=== PATIENT | female | born 1955 | race Caucasian/White ===

== ENCOUNTER 2016-07-31 09:29 | Observation (INO) | payer BC ==
[2016-07-31 10:43] LABS: Hematocrit 40 % (35-47); Hemoglobin 13.3 g/dl (12.0-16.0); Mean Corpuscular HGB Conc 34 g/dl (31-36); Mean Corpuscular Hemoglobin 33 pg (27-31); Mean Corpuscular Volume 97 fL (80-97); Mean Platelet Volume 9 um3 (7.4-10.4); Red Blood Count 4.09 10^6/ul (4.0-5.4); Red Cell Distribution Width 12 % (10.5-15); White Blood Count 5.8 10^3/ul (3.5-10.8)
--- NOTE | 2016-07-31 10:47 | RAD ---
INDICATION: Chest pain COMPARISON: Chest x-ray May 30, 2010 TECHNIQUE: An AP portable view obtained at 1015 hours is submitted. FINDINGS: Bones/Soft Tissues: There are no acute bony findings. Cardiomediastinal: The cardiomediastinal silhouette is normal. Lungs: There are no infiltrates. Pleura: There are no pleural effusions. Other: None IMPRESSION: NORMAL CHEST
[2016-07-31 10:55] LABS: Albumin 4.2 g/dL (3.2-5.2); BUN/Creatinine Ratio 11.1 (8-20); Calcium 9.4 mg/dL (8.6-10.3); EGFR African American 106.6 (>60); EGFR Non-African American 82.9 (>60); Globulin 2.9 g/dL (2-4); Magnesium 1.9 mg/dL (1.9-2.7); Potassium 3.6 mmol/L (3.5-5.0); Total Bilirubin 0.5 mg/dL (0.2-1.0); Total Protein 7.1 g/dL (6.4-8.9)
[2016-07-31 11:16] LABS: T4 4.73 g/dL (6.09-12.23)
[2016-07-31 11:17] LABS: TSH (Thyroid Stimulating Horm) 1.2 mcIU/mL (0.34-5.60)
[2016-07-31] MEDS ORDERED: Acetaminophen TAB* 325 MG PO PRN (11:39)
[2016-07-31] MEDS ORDERED: Ondansetron INJ* 2 MG/ML VIAL IV PRN (11:39)
--- NOTE | 2016-07-31 11:46 | ED ---
Karel Mabry Janilya, scribed for Jos Carlson MD on 07/31/16 at 0959 . HPI Chest Pain - HPI Summary HPI Summary: A 60 y/o female [facility] presenting w/ a gradual onset of waxing and waning chest heaviness for the past 2 days. It is worse when she first awakes. She took Tums yesterday and today because she's had "gas pain" before. However, it provided no change in pain. At this time, pain is not reproducible with palpations. Severity rated 4/10. Pt denies SOB, nausea, diaphoresis, pedal edema. PMHx palpitations 4-5 years ago, HTN, asthma. FHx cardiac diseases. PSHx appendectomy. SHx no tobacco use, occasional EtOH use. - History of Current Complaint Chief Complaint: EDChestPainROMI Time Seen by Provider: 07/31/16 09:42 Hx Obtained From: Patient Onset/Duration: Started Days Ago, Atraumatic, Still Present Timing: Constant Initial Severity: Moderate Current Severity: Moderate Pain Intensity: 4 Pain Scale Used: 0-10 Numeric Chest Pain Location: Diffuse Chest Pain Radiates: No Character: Heaviness Aggravating Factor(s): Nothing Alleviating Factor(s): Nothing Associated Signs and Symptoms: Positive: Chest Pain. Negative: Shortness of Breath, Diaphoresis, Nausea, Edema - Allergy/Home Medications Allergies/Adverse Reactions: Allergies Allergy/AdvReac Type Severity Reaction Status Date / Time Aspirin Allergy Anaphylatic Verified 02/14/14 13:54 Shock Ibuprofen Allergy Anaphylatic Verified 02/14/14 13:54 Shock PMH/Surg Hx/FS Hx/Imm Hx Previously Healthy: Yes Cardiovascular History: Reports: Hx Hypertension Respiratory History: Reports: Hx Asthma Musculoskeletal History: Denies: Hx Rheumatoid Arthritis, Hx Osteoporosis Infectious Disease History: Denies: Traveled Outside the [place] in Last 30 Days - Family History Known Family History: Positive: Cardiac Disease - Social History Alcohol Use: Daily Alcohol Amount: 2 glasses a day Substance Use Type: Reports: None Smoking Status (MU): Former Smoker Type: Cigarettes Length of Time of Smoking/Using Tobacco: 15 years Have You Smoked in the Last Year: No Review of Systems Positive: Chest Pain Negative: Shortness Of Breath Negative: Nausea Negative: Edema Neurological: Negative - pt denies diaphoresis All Other Systems Reviewed And Are Negative: Yes Physical Exam - Summary Physical Exam Summary: VITAL SIGNS: Reviewed. GENERAL: Patient is a well developed and nourished female who is lying comfortable in the stretcher. Patient is not in any acute respiratory distress. HEAD AND FACE: No signs of trauma. No ecchymosis, hematomas or skull depressions. No sinus tenderness. EYES: PERRLA, EOMI x 2, No injected conjunctiva, no nystagmus. EARS: Hearing grossly intact. Ear canals and tympanic membranes are within normal limits. MOUTH: Oropharynx within normal limits. NECK: Supple, trachea is midline, no adenopathy, no JVD, no carotid bruit, no c- spine tenderness, neck with full ROM. CHEST: Symmetric, no tenderness at palpation LUNGS: Clear to auscultation bilaterally. No wheezing or crackles. CVS: Regular rate and rhythm, S1 and S2 present, no murmurs or gallops appreciated. ABDOMEN: Soft, non-tender. No signs of distention. No rebound no guarding, and no masses palpated. Bowel sounds are normal. EXTREMITIES: FROM in all major joints, no edema, no cyanosis or clubbing. NEURO: Alert and oriented x 3. No acute neurological deficits. Speech is normal and follows commands. SKIN: Dry and warm Triage Information Reviewed: Yes Vital Signs On Initial Exam: Initial Vitals Temp Pulse Resp BP Pulse Ox 96.9 F 84 16 151/71 99 07/31/16 09:31 07/31/16 09:31 07/31/16 09:31 07/31/16 09:31 07/31/16 09:31 Vital Signs Reviewed: Yes Diagnostics - Vital Signs Vital Signs Temp Pulse Resp BP Pulse Ox 07/31/16 09:31 96.9 F 84 16 151/71 99 - Laboratory Lab Results: Lab Results 07/31/16 07/31/16 07/31/16 Range/Units 10:12 10:12 10:12 WBC 5.8 (3.5-10.8) 10^3/ul RBC 4.09 (4.0-5.4) 10^6/ul Hgb 13.3 (12.0-16.0) g/dl Hct 40 (35-47) % MCV 97 (80-97) fL MCH 33 H (27-31) pg MCHC 34 (31-36) g/dl RDW 12 (10.5-15) % Plt Count 177 (150-450) 10^3/ul MPV 9 (7.4-10.4) um3 Neut % (Auto) 59.4 (38-83) % Lymph % (Auto) 29.0 (25-47) % [place] % (Auto) 6.8 (1-9) % Eos % (Auto) 4.5 (0-6) % Baso % (Auto) 0.3 (0-2) % Absolute Neuts (auto) 3.4 (1.5-7.7) 10^3/ul Absolute Lymphs (auto) 1.7 (1.0-4.8) 10^3/ul Absolute Monos (auto) 0.4 (0-0.8) 10^3/ul Absolute Eos (auto) 0.3 (0-0.6) 10^3/ul Absolute Basos (auto) 0 (0-0.2) 10^3/ul Absolute Nucleated RBC 0 10^3/ul Nucleated RBC % 0.1 INR (Anticoag Therapy) 0.85 L (0.89-1.11) APTT 27.3 (26.0-36.3) seconds Sodium 135 (133-145) mmol/L Potassium 3.6 (3.5-5.0) mmol/L Chloride 101 (101-111) mmol/L Carbon Dioxide 26 (22-32) mmol/L Anion Gap 8 (2-11) mmol/L BUN 8 (6-24) mg/dL Creatinine 0.72 (0.51-0.95) mg/dL Est GFR ( Amer) 106.6 (>60) Est GFR (Non-Af Amer) 82.9 (>60) BUN/Creatinine Ratio 11.1 (8-20) Glucose 112 H (70-100) mg/dL Lactic Acid (0.5-2.0) mmol/L Calcium 9.4 (8.6-10.3) mg/dL Magnesium 1.9 (1.9-2.7) mg/dL Total Bilirubin 0.50 (0.2-1.0) mg/dL AST 30 (13-39) U/L ALT 34 (7-52) U/L Alkaline Phosphatase 56 (34-104) U/L Total Creatine Kinase 72 (10-223) U/L CK-MB (CK-2) 2.5 (0.6-6.3) ng/mL Troponin I 0.00 (<0.04) ng/mL B-Natriuretic Peptide ( - 100) pg/mL Total Protein 7.1 (6.4-8.9) g/dL Albumin 4.2 (3.2-5.2) g/dL Globulin 2.9 (2-4) g/dL Albumin/Globulin Ratio 1.4 (1-3) TSH 1.20 (0.34-5.60) mcIU/mL Thyroxine (T4) 4.73 L (6.09-12.23) g/dL 07/31/16 07/31/16 Range/Units 10:12 10:12 WBC (3.5-10.8) 10^3/ul RBC (4.0-5.4) 10^6/ul Hgb (12.0-16.0) g/dl Hct (35-47) % MCV (80-97) fL MCH (27-31) pg MCHC (31-36) g/dl RDW (10.5-15) % Plt Count (150-450) 10^3/ul MPV (7.4-10.4) um3 Neut % (Auto) (38-83) % Lymph % (Auto) (25-47) % [place] % (Auto) (1-9) % Eos % (Auto) (0-6) % Baso % (Auto) (0-2) % Absolute Neuts (auto) (1.5-7.7) 10^3/ul Absolute Lymphs (auto) (1.0-4.8) 10^3/ul Absolute Monos (auto) (0-0.8) 10^3/ul Absolute Eos (auto) (0-0.6) 10^3/ul Absolute Basos (auto) (0-0.2) 10^3/ul Absolute Nucleated RBC 10^3/ul Nucleated RBC % INR (Anticoag Therapy) (0.89-1.11) APTT (26.0-36.3) seconds Sodium (133-145) mmol/L Potassium (3.5-5.0) mmol/L Chloride (101-111) mmol/L Carbon Dioxide (22-32) mmol/L Anion Gap (2-11) mmol/L BUN (6-24) mg/dL Creatinine (0.51-0.95) mg/dL Est GFR ( Amer) (>60) Est GFR (Non-Af Amer) (>60) BUN/Creatinine Ratio (8-20) Glucose (70-100) mg/dL Lactic Acid 3.0 H* (0.5-2.0) mmol/L Calcium (8.6-10.3) mg/dL Magnesium (1.9-2.7) mg/dL Total Bilirubin (0.2-1.0) mg/dL AST (13-39) U/L ALT (7-52) U/L Alkaline Phosphatase (34-104) U/L Total Creatine Kinase (10-223) U/L CK-MB (CK-2) (0.6-6.3) ng/mL Troponin I (<0.04) ng/mL B-Natriuretic Peptide 32 ( - 100) pg/mL Total Protein (6.4-8.9) g/dL Albumin (3.2-5.2) g/dL Globulin (2-4) g/dL Albumin/Globulin Ratio (1-3) TSH (0.34-5.60) mcIU/mL Thyroxine (T4) (6.09-12.23) g/dL Result Diagrams: 07/31/16 10:12 07/31/16 10:12 Lab Statement: Any lab studies that have been ordered have been reviewed, and results considered in the medical decision making process. - EKG 0935 Cardiac Rate: NL - 89 bpm EKG Rhythm: Sinus Rhythm Ectopy: None EKG Interpretation: ST depression in V4, V5, V6 Chest Pain Course/Dx - Course Assessment/Plan: A 60 y/o female came in to [facility] presenting w/ a gradual onset of waxing and waning chest heaviness for the past 2 days. It is worse when she first awakes. She took Tums yesterday and today because she's had "gas pain" before. However, it provided no change in pain. At this time, pain is not reproducible with palpations. Severity rated 4/10. Pt denies SOB, nausea, diaphoresis, pedal edema. Blood work is within normal limits except for glucose (112 H) and lactic acid (3.0 H). Troponin levels is 0.00. CXR shows no acute disease. EKG is sinus rhythm with ST depression in v4 v5 v6. plus her symptoms of Chest pressure I discussed physical exam findings with Dr. Gray who agreed to admit patient to her services. At this time, pt is hemodynamically stable and AxOx3. - Chest Pain Differential Diagnosis/HQI/PQRI: Acute [place], ACS, Angina, CHF, Chest Wall, GI Disease, Lower Respiratory Infection - Diagnoses Provider Diagnoses: Chest pain due to myocardial ischemia, Abnormal EKG Discharge - Discharge Plan Condition: Stable Disposition: ADMITTED TO [facility] Referrals: Emma Nayak MD [Primary Care Provider] - The documentation as recorded by the Karel weir Janilya accurately reflects the service I personally performed and the decisions made by , Jos Carlson MD.
[2016-07-31] MEDS ORDERED: Albuterol 2.5 MG/3 ML NEB.SOL* (0.083%) INH PRN (13:00)
[2016-07-31] MEDS: Heparin VIAL(*) 5000 UNITS/ML VIAL (FIVE THOUSAND) SUBCUT SCH ×2 (15:07→21:04)
[2016-07-31] MEDS: Metoprolol Tartrate TAB* 25 MG PO SCH ×2 (15:07→20:58)
[2016-07-31] MEDS: Clopidogrel TAB* 75 MG PO SCH (15:07)
--- NOTE | 2016-07-31 16:53 | HP ---
ADDENDUM NOW INCLUDED ON THIS REPORT HISTORY AND PHYSICAL DATE OF CONSULT: 07/31/16 REQUESTING PHYSICIAN FOR CONSULT: Dr. Carlson. ATTENDING PHYSICIAN WHILE IN THE HOSPITAL: Dr. Sugey Levi * (report dictated by Rey Tate NP). PRIMARY CARE PROVIDER: Dr. Rust. CHIEF COMPLAINT: Chest pain. HISTORY OF PRESENT ILLNESS: Mr. Alvarado is a 60-year-old female patient that comes in to the ER today stating that she has been having chest pain now for the last 2 days, mostly in the morning, but she also does state that she has been having chest discomfort and it does get worse and pressure at times with exertion. She says that the pain was much worse and severe today, so she decided to come into the ER. She had no association of diaphoresis, nausea, or shortness of breath, and the pain did not radiate up into her jaw or down her arm, but she did not have discomfort. She said the frequency has not been increasing, but she says the severity was worse today, so she decided to come in. She denies any recent trips or travel. No calf pain or leg pain. Denies having any recent fevers, cough, chills, or any upper respiratory-type symptoms. She was evaluated in the ED and we were asked to evaluate for admission. PAST MEDICAL HISTORY: Significant for: 1. Asthma. 2. Hypertension. 3. Hyperlipidemia. PAST SURGICAL HISTORY: She has had: 1. Appendectomy 2. Knee arthroscopy. MEDICATIONS: The home meds according to her include: 1. Pulmicort 1 puff twice a day. 2. Nasonex 2 sprays nasal daily. 3. Avapro 150 mg daily. 4. Fish oil 2 capsules p.o. daily. 5. Claritin 10 mg daily. ALLERGIES TO MEDICATIONS: Include ASPIRIN and IBUPROFEN. FAMILY HISTORY: Mother has a history of coronary artery disease and father had AAA. SOCIAL HISTORY: She is a former smoker, smoked a pack a day for about 20 years. She drinks a glass of wine on a nightly basis. Surrogate decision maker is her , Lyle. REVIEW OF SYSTEMS: There is no documented fever. She denied having any significant weight change. There was no double vision. She denies having any ear discharge. There is no rhinorrhea. No sore throat. No thyroid enlargement. There was chest pain from my HPI. There is no abdominal pain. No nausea, no vomiting. No dysuria, no frequency. No seizure. There is no loss of consciousness. No pruritus and no skin ulcerations. Review of 14 systems completed, all others negative. PHYSICAL EXAM: Reveals vital signs, blood pressure 169/89, pulse 75, respirations 14, O2 sat 96%, temperature 96.9. General: At this time, Ms. Alvarado is a 60-year- old female patient. She is sitting in the ER stretcher, does not appear to be in any acute distress. Well-nourished and well- developed. HEENT: Head: Atraumatic and normocephalic. Eyes: EOMs intact. Sclerae anicteric, not pale. Neck: Supple. Throat: Oral mucosa appears to be moist. No oropharyngeal erythema. Heart: Sounds S1, S2. Regular rate and rhythm. No murmurs, rubs, or gallops. Lungs: Clear to auscultation bilaterally. No wheezes, rales, or rhonchi. Abdomen: Soft, flat, and nontender. Bowel sounds present. Extremities: Pulses were 2+ throughout. Able to move all 4 extremities with 5/5 strength. Neurologic: The patient is awake, alert, and oriented x3. Tongue midline. Certified Medical Coding Specialist are equal. No gross focal deficits. Skin is grossly intact.. DIAGNOSTIC STUDIES/LAB DATA: Reveal WBC 5.8, RBC of 4.09, hemoglobin 13.3, hematocrit 40, platelet count 177. INR 0.85, PTT 27.3. Sodium was 135, potassium was 3.6, chloride 101, bicarb of 26, BUN 8, creatinine of 0.72, glucose 112, lactate 3, calcium 9.4, mag 1.9. Total bili 0.5, AST 30, ALT 34, alk phos 56. CK 72. Troponin 0. Albumin of 4.2. TSH pending. Chest x-ray showed a normal x-ray. EKG shows a normal sinus rhythm, rate of 89. She has had some ST depressions in V4, 5, and 6 and also II, III, and aVF, which is new compared to her previous EKGs from 7 years ago. Old medical records were reviewed. ASSESSMENT AND PLAN: Ms. Alvarado is a 60-year-old female patient with risk factors for acute coronary syndrome, presenting today with complaints of chest pain, I think, it is worse with exertion. We were asked to evaluate for admission. Unfortunately, though the patient after long discussion at this point is not willing to stay. She is going to sign out AMA. I did discuss with her that I am concerned that she may have a partial blockage, I would actually like to keep her for a stress test. I also discussed this with my attending, who agreed that this patient should stay for a stress test, echo, troponin, stay until Tuesday for stress test, again she does have a pretty good story and risk factors. In discussion with this with the patient, she says that she has worked a long week and she would like to go home. She feels like she will get better sleep and she would like to set this evaluation up in the outpatient setting. I did explain to her though that if she signs out AMA, the risks include, but are not limited to, , permanent disability, myocardial infarction, and again possible , and she knowing this again is not willing to stay at this point. She does want to talk to one of her physician colleagues , she may decide to stay, but I did instruct to her that the plan would be to keep her until Tuesday for a stress test, so she is debating this right now. I updated Dr. Carlson of the plan and I did recommended by Dr. Carlson to repeat a second troponin and then have her sign out against medical advice, so again I am waiting to hear from the patient of ultimately what she decides. TIME SPENT: On the consult was approximately 70 minutes; greater than half the time was spent [id number] with the patient obtaining my history and physical, other half the time spent going over the plan of care with the patient and implementing plan of care. I did discuss the plan of care with my attending, Dr. Levi; she is agreement. REY TATE NP ADDENDUM: HISTORY AND PHYSICAL: "Please change my initial consultation report to an H and P." In further discussion with Ms. Alvarado, she has decided to stay in the hospital, so now the plan will be to go ahead and admit her under observation status for: 1. Chest pain. Again, her story is concerning, so I think she warrants Plavix and beta nino. She is allergic to ASPIRIN; it gives her chest tightness and wheeze, so I think Plavix is appropriate. Cycle her troponins, see an EKG in the morning, lipid panel, in addition to this also order stress test for Tuesday and an echo, and I would like to keep her until Tuesday for the stress test because her story was concerning. If the troponins go up or she had further EKG changes, then we obviously would get Cardiology involved and I would probably add on a heparin drip. She is chest pain free currently. 2. History of asthma. We will continue her meds as prescribed. 3. History of hypertension. Continue her Avapro. 4. History of hyperlipidemia. She is currently not on a statin. We will get a lipid panel in the morning, consider adding this tomorrow. 5. DVT prophylaxis. She will be placed on heparin subcu. 6. Fluids, electrolytes, and nutrition. She can have a heart-healthy diet, then she is n.p.o. for Tuesday morning. 7. Code status. Full code. TIME SPENT: On the admission again about 70 minutes, greater than half the time was spent [id number] with the patient, going over the plan of care with the patient and implementing the plan of care. I did discuss the plan of care with my attending, Dr. Levi; she is in agreement. REY TATE NP CC: Dr. Rust* [id number]/CPS #: [id number]/CPS #: [id number] KELLIE
[2016-07-31] MEDS: PTO: Budesonide Flexhaler 180 (NF) 180 MCG/ACT MDI INH SCH ×2 (18:00→20:43)
--- NOTE | 2016-07-31 20:49 | HP ---
CC: Dr. Rust HISTORY AND PHYSICAL: "Please change my initial consultation report to an H and P." ADDENDUM: In further discussion with Ms. Alvarado, she has decided to stay in the hospital, so now the plan will be to go ahead and admit her under observation status for: 1. Chest pain. Again, her story is concerning, so I think she warrants Plavix and beta nino. She is allergic to ASPIRIN; it gives her chest tightness and wheeze, so I think Plavix is appropriate. Cycle her troponins, see an EKG in the morning, lipid panel, in addition to this also order stress test for Tuesday and an echo, and I would like to keep her until Tuesday for the stress test because her story was concerning. If the troponins go up or she had further EKG changes, then we obviously would get Cardiology involved and I would probably add on a heparin drip. She is chest pain free currently. 2. History of asthma. We will continue her meds as prescribed. 3. History of hypertension. Continue her Avapro. 4. History of hyperlipidemia. She is currently not on a statin. We will get a lipid panel in the morning, consider adding this tomorrow. 5. DVT prophylaxis. She will be placed on heparin subcu. 6. Fluids, electrolytes, and nutrition. She can have a heart-healthy diet, then she is n.p.o. for Tuesday morning. 7. Code status. Full code. TIME SPENT: On the admission again about 70 minutes, greater than half the time was spent [id number] with the patient, going over the plan of care with the patient and implementing the plan of care. I did discuss the plan of care with my attending, Dr. Levi; she is in agreement. FANY KWAN, MEDICAL CLAIMS PROCESSOR [id number]/CPS #: [id number] KELLIE
[2016-07-31] MEDS: FATTY ACIDS PO SCH (21:02)
[2016-07-31] MEDS: OMEGA PO SCH (21:02)
[2016-08-01] MEDS: LORazepam TAB(*) 0.5 MG PO PRN ×2 (02:05→21:25)
[2016-08-01] MEDS: Heparin VIAL(*) 5000 UNITS/ML VIAL (FIVE THOUSAND) SUBCUT SCH ×3 (05:27→21:17)
[2016-08-01 06:07] LABS: Hematocrit 38 % (35-47); Hemoglobin 12.7 g/dl (12.0-16.0); Mean Corpuscular HGB Conc 34 g/dl (31-36); Mean Corpuscular Hemoglobin 33 pg (27-31); Mean Corpuscular Volume 98 fL (80-97); Mean Platelet Volume 9 um3 (7.4-10.4); Red Blood Count 3.87 10^6/ul (4.0-5.4); Red Cell Distribution Width 12 % (10.5-15); White Blood Count 6.5 10^3/ul (3.5-10.8)
[2016-08-01 06:27] LABS: BUN/Creatinine Ratio 14.5 (8-20); Calcium 9.1 mg/dL (8.6-10.3); EGFR Non-African American 87.1 (>60); HDL Cholesterol 35.8 mg/dL; Potassium 3.8 mmol/L (3.5-5.0)
[2016-08-01] MEDS: FATTY ACIDS PO SCH ×2 (07:26→21:16)
[2016-08-01] MEDS: PTO: Mometasone NASAL (NF) SPRAY BOTH NARES SCH (07:26)
[2016-08-01] MEDS: OMEGA PO SCH ×2 (07:26→21:16)
[2016-08-01] MEDS: Clopidogrel TAB* 75 MG PO SCH (07:26)
[2016-08-01] MEDS: Metoprolol Tartrate TAB* 25 MG PO SCH ×2 (07:27→21:15)
[2016-08-01] MEDS: IRBESARTAN 150 MG PO SCH (07:27)
[2016-08-01] MEDS ORDERED: Levalbuterol 1.25MG/0.5ML NEB INH PRN (12:35)
--- NOTE | 2016-08-01 13:22 | PN ---
Subjective Date of Service: 08/01/16 Interval History: pt still c/o " throat pain worse upon awakening in AM. Clears her throat frequently during the eval, which apparently is usual for her. Objective Active Medications: Acetaminophen (Tylenol Tab*) 650 mg PO Q4H PRN PRN Reason: FEVER/PAIN Albuterol (Ventolin 2.5 Mg/3 Ml Neb.Julianne*) 2.5 mg INH Q2H PRN PRN Reason: SOB/WHEEZING Budesonide (Pulmicort Flexhaler 180 Mcg/Act (Nf)) 2 puff INH BID [facility] Clopidogrel Bisulfate (Plavix Tab*) 75 mg PO DAILY [facility] Last Admin: 08/01/16 07:26 Dose: 75 mg Fish Oil (Fish Oil (Nf)) 2,000 mg PO BID [facility] Last Admin: 08/01/16 07:26 Dose: 2,000 mg Heparin Sodium (Porcine) (Heparin Vial(*)) 5,000 units SUBCUT Q8HR [facility] Last Admin: 08/01/16 05:27 Dose: Not Given Irbesartan (Avapro (Nf)) 150 mg PO DAILY [facility] Last Admin: 08/01/16 07:27 Dose: 150 mg Levalbuterol HCl (Xopenex 1.25 Mg/0.5 Ml Neb.Julianne*) 1.25 mg INH Q6H PRN PRN Reason: SHORTNESS OF BREATH Lorazepam (Ativan Tab(*)) 0.5 mg PO BEDTIME PRN PRN Reason: ANXIETY Last Admin: 08/01/16 02:05 Dose: 0.5 mg Metoprolol Tartrate (Lopressor Tab*) 12.5 mg PO Q12HR [facility] Last Admin: 08/01/16 07:27 Dose: 12.5 mg Mometasone Furoate (Nasonex (Nf)) 2 spray BOTH NARES DAILY [facility] Last Admin: 08/01/16 07:26 Dose: 2 spray Ondansetron HCl (Zofran Inj*) 4 mg IV Q6H PRN PRN Reason: NAUSEA Sucralfate (Carafate*) 1 gm PO TID [facility] Vital Signs 07/31/16 07/31/16 07/31/16 15:16 16:35 19:09 Temperature 98.1 F 98.4 F Pulse Rate 82 64 Respiratory 18 16 Rate Blood Pressure 141/78 138/81 (mmHg) O2 Sat by Pulse 98 98 93 Oximetry 07/31/16 07/31/16 07/31/16 19:33 20:00 23:23 Temperature 98.2 F Pulse Rate 61 65 Respiratory 16 16 16 Rate Blood Pressure 152/81 (mmHg) O2 Sat by Pulse 99 99 Oximetry 08/01/16 08/01/16 08/01/16 00:00 02:05 03:22 Temperature 98.0 F Pulse Rate 62 Respiratory 18 16 Rate Blood Pressure 132/70 (mmHg) O2 Sat by Pulse 98 96 Oximetry 08/01/16 08/01/16 08/01/16 04:05 07:18 07:50 Temperature 98.5 F Pulse Rate 62 62 Respiratory 16 16 16 Rate Blood Pressure 141/73 (mmHg) O2 Sat by Pulse 98 96 Oximetry 08/01/16 08/01/16 08/01/16 07:51 08:00 11:06 Temperature 98.0 F Pulse Rate 68 Respiratory 18 16 Rate Blood Pressure 120/73 (mmHg) O2 Sat by Pulse 96 97 Oximetry Oxygen Devices in Use Now: None Appearance: 60 yo F in nAd, aAOx3 Eyes: No Scleral Icterus, PERRLA Ears/Nose/Mouth/Throat: NL Teeth, Lips, Gums, Mucous Membranes Moist Neck: NL Appearance and Movements; NL JVP, Trachea Midline Respiratory: Symmetrical Chest Expansion and Respiratory Effort, Clear to Auscultation Cardiovascular: NL Sounds; No Murmurs; No JVD, RRR Abdominal: NL Sounds; No Tenderness; No Distention Lymphatic: No Cervical Adenopathy Extremities: No Edema, No Clubbing, Cyanosis Skin: No Rash or Ulcers, No Nodules or Sclerosis Neurological: Alert and Oriented x 3, NL Muscle Strength and Tone Result Diagrams: 08/01/16 05:53 08/01/16 05:53 Additional Lab and Data: Lab Results 07/31/16 07/31/16 07/31/16 Range/Units 10:12 10:12 10:12 WBC 5.8 (3.5-10.8) 10^3/ul RBC 4.09 (4.0-5.4) 10^6/ul Hgb 13.3 (12.0-16.0) g/dl Hct 40 (35-47) % MCV 97 (80-97) fL MCH 33 H (27-31) pg MCHC 34 (31-36) g/dl RDW 12 (10.5-15) % Plt Count 177 (150-450) 10^3/ul MPV 9 (7.4-10.4) um3 Neut % (Auto) 59.4 (38-83) % Lymph % (Auto) 29.0 (25-47) % Mckean % (Auto) 6.8 (1-9) % Eos % (Auto) 4.5 (0-6) % Baso % (Auto) 0.3 (0-2) % Absolute Neuts (auto) 3.4 (1.5-7.7) 10^3/ul Absolute Lymphs (auto) 1.7 (1.0-4.8) 10^3/ul Absolute Monos (auto) 0.4 (0-0.8) 10^3/ul Absolute Eos (auto) 0.3 (0-0.6) 10^3/ul Absolute Basos (auto) 0 (0-0.2) 10^3/ul Absolute Nucleated RBC 0 10^3/ul Nucleated RBC % 0.1 INR (Anticoag Therapy) 0.85 L (0.89-1.11) APTT 27.3 (26.0-36.3) seconds Sodium 135 (133-145) mmol/L Potassium 3.6 (3.5-5.0) mmol/L Chloride 101 (101-111) mmol/L Carbon Dioxide 26 (22-32) mmol/L Anion Gap 8 (2-11) mmol/L BUN 8 (6-24) mg/dL Creatinine 0.72 (0.51-0.95) mg/dL Est GFR ( Amer) 106.6 (>60) Est GFR (Non-Af Amer) 82.9 (>60) BUN/Creatinine Ratio 11.1 (8-20) Glucose 112 H (70-100) mg/dL Lactic Acid (0.5-2.0) mmol/L Calcium 9.4 (8.6-10.3) mg/dL Magnesium 1.9 (1.9-2.7) mg/dL Total Bilirubin 0.50 (0.2-1.0) mg/dL AST 30 (13-39) U/L ALT 34 (7-52) U/L Alkaline Phosphatase 56 (34-104) U/L Total Creatine Kinase 72 (10-223) U/L CK-MB (CK-2) 2.5 (0.6-6.3) ng/mL Troponin I 0.00 (<0.04) ng/mL B-Natriuretic Peptide ( - 100) pg/mL Total Protein 7.1 (6.4-8.9) g/dL Albumin 4.2 (3.2-5.2) g/dL Globulin 2.9 (2-4) g/dL Albumin/Globulin Ratio 1.4 (1-3) TSH 1.20 (0.34-5.60) mcIU/mL Thyroxine (T4) 4.73 L (6.09-12.23) g/dL 07/31/16 07/31/16 Range/Units 10:12 10:12 WBC (3.5-10.8) 10^3/ul RBC (4.0-5.4) 10^6/ul Hgb (12.0-16.0) g/dl Hct (35-47) % MCV (80-97) fL MCH (27-31) pg MCHC (31-36) g/dl RDW (10.5-15) % Plt Count (150-450) 10^3/ul MPV (7.4-10.4) um3 Neut % (Auto) (38-83) % Lymph % (Auto) (25-47) % Mckean % (Auto) (1-9) % Eos % (Auto) (0-6) % Baso % (Auto) (0-2) % Absolute Neuts (auto) (1.5-7.7) 10^3/ul Absolute Lymphs (auto) (1.0-4.8) 10^3/ul Absolute Monos (auto) (0-0.8) 10^3/ul Absolute Eos (auto) (0-0.6) 10^3/ul Absolute Basos (auto) (0-0.2) 10^3/ul Absolute Nucleated RBC 10^3/ul Nucleated RBC % INR (Anticoag Therapy) (0.89-1.11) APTT (26.0-36.3) seconds Sodium (133-145) mmol/L Potassium (3.5-5.0) mmol/L Chloride (101-111) mmol/L Carbon Dioxide (22-32) mmol/L Anion Gap (2-11) mmol/L BUN (6-24) mg/dL Creatinine (0.51-0.95) mg/dL Est GFR ( Amer) (>60) Est GFR (Non-Af Amer) (>60) BUN/Creatinine Ratio (8-20) Glucose (70-100) mg/dL Lactic Acid 3.0 H* (0.5-2.0) mmol/L Calcium (8.6-10.3) mg/dL Magnesium (1.9-2.7) mg/dL Total Bilirubin (0.2-1.0) mg/dL AST (13-39) U/L ALT (7-52) U/L Alkaline Phosphatase (34-104) U/L Total Creatine Kinase (10-223) U/L CK-MB (CK-2) (0.6-6.3) ng/mL Troponin I (<0.04) ng/mL B-Natriuretic Peptide 32 ( - 100) pg/mL Total Protein (6.4-8.9) g/dL Albumin (3.2-5.2) g/dL Globulin (2-4) g/dL Albumin/Globulin Ratio (1-3) TSH (0.34-5.60) mcIU/mL Thyroxine (T4) (6.09-12.23) g/dL Assess/Plan/Problems-Billing Assessment: 60 yo F with h/o asthma, HTN, dyslipidemia presents with CP - Patient Problems (1) Chest pain Comment: so far troponins neg and EKG unremarkable. Awaiting stress test in aM Staring Carafate to poss tx GI symptoms/GERD low dose BB and Plavix started at admission (pt is allergic to ASA) (2) HTN (hypertension) Comment: controlled Avapro cont (3) Asthma Comment: no exacerbation cont Pulmicort (4) DVT prophylaxis Comment: heparin sc
[2016-08-01] MEDS: Sucralfate TAB* 1 GM PO SCH ×2 (13:57→21:14)
[2016-08-01] MEDS: PTO: Budesonide Flexhaler 180 (NF) 180 MCG/ACT MDI INH SCH ×2 (17:09→21:15)
[2016-08-02] MEDS: Heparin VIAL(*) 5000 UNITS/ML VIAL (FIVE THOUSAND) SUBCUT SCH ×2 (05:46→14:48)
[2016-08-02] MEDS: Clopidogrel TAB* 75 MG PO SCH (08:03)
[2016-08-02] MEDS: FATTY ACIDS PO SCH (08:04)
[2016-08-02] MEDS: IRBESARTAN 150 MG PO SCH (08:04)
[2016-08-02] MEDS: PTO: Mometasone NASAL (NF) SPRAY BOTH NARES SCH (08:04)
[2016-08-02] MEDS: PTO: Budesonide Flexhaler 180 (NF) 180 MCG/ACT MDI INH SCH (08:04)
[2016-08-02] MEDS: OMEGA PO SCH (08:04)
[2016-08-02] MEDS: Sucralfate TAB* 1 GM PO SCH ×2 (10:24→14:48)
[2016-08-02 12:41] VITALS: BP 133/66
--- NOTE | 2016-08-02 14:25 | RAD ---
HISTORY: Chest pain COMPARISONS: December 24, 2010 TECHNIQUE: A 1 day stress/rest myocardial perfusion study was performed, with exercise stress. The exercise portion was performed using the Chi protocol, for a total METs of 12.8. The stress portion was monitored by Dr. Rogel. Gated SPECT imaging was performed, with CT-based attenuation correction DOSE: Stress: Technetium 99m tetrofosmin, 25.35 millicuries, injected at 12:54 PM on August 02, 2016 Rest: Technetium 99m tetrofosmin, 10.2 millicuries, injected at 8:05 AM on August 02, 2016 Pharmacologic agent: None FINDINGS: CARDIAC MONITORING: Peak heart rate of 168 bpm, 104% of predicted EF: 64 % TID: 1.08 MOTION: Normal motion, with normal wall thickening. PERFUSION: There are no fixed or reversible perfusion defects. OTHER: None IMPRESSION: NORMAL EJECTION FRACTION. NO FIXED OR REVERSIBLE PERFUSION DEFECTS ASSESSMENT: LOW RISK. Based on imaging criteria from ACC/AHA 2002. Guideline Update for the Management of Patient's with Chronic Stable Angina, table 23. Noninvasive Risk Stratification.
[2016-08-02] MEDS: Metoprolol Tartrate TAB* 25 MG PO SCH (14:47)
--- NOTE | 2016-08-03 12:44 | DS ---
CC: Dr. Emma Rust DISCHARGE SUMMARY: DATE OF ADMISSION: 07/31/16 DATE OF DISCHARGE: 08/02/16 PRIMARY CARE PROVIDER: Dr. Emma Rust. DISCHARGE DIAGNOSES: 1. Chest pain, most likely gastroesophageal reflux disease related with low probability cardiac stress test documented on 08/02/16. 2. Hypertriglyceridemia. SECONDARY DIAGNOSES: 1. History of hypertriglyceridemia. 2. Hypertension. 3. Asthma. MEDICATIONS AT DISCHARGE: Unchanged apart from addition of omeprazole 20 mg p.o. b.i.d. and the remaining medications include: 1. Budesonide 2 puffs b.i.d. 2. Avapro 150 mg daily. 3. Xopenex nebulizer 1.25 mg every 6 hours p.r.n. 4. Nasonex nasal spray 2 sprays both nostrils daily. 5. Bath-3 fatty acids 2 g daily. LABORATORY DATA: On 08/01/16, white blood cell count 6.5, hemoglobin of 12.7, hematocrit of 38, and platelets of 171. Sodium of 138, potassium 3.8, chloride 103, carbon dioxide 27, BUN 10, creatinine 0.69. The patient's fasting lipid profile showed triglycerides of 564, cholesterol 217, LDL unable to calculate due to high triglyceride level, and HDL of 35.8. The patient's TSH was 1.2. The patient's troponins continued to be negative throughout the hospital stay. Transthoracic echocardiogram obtained on 08/01/16 showed EF of 60% to 65% with global left ventricular wall motion contractility within normal limits. Functionally benign heart valves. Nuclear medicine cardiac stress test obtained on 08/02/16: Impression: " Normal ejection fraction, no fixed or reversible perfusion defects." Physical exam unchanged from discharge. HOSPITALIZATION COURSE: Karen Alvarado is a 60-year-old female with history of hypertension and asthma, who presented complaining of chest pain. She described it as "throat pain" worse in the morning when she would wake up. It happened a couple of days in a row and she presented to the ED for evaluation. Here on the EKG, she had [address] in lead V4. Her troponins continued to be negative. She was placed on observation on telemetry monitored bed. She continued to be in sinus rhythm with unremarkable troponins. Her lab work further noted to be positive for hypertriglyceridemia. The patient underwent a cardiac stress test obtained on 08/02/16 which was noted to be low probability for angina. A day prior to her stress test, she was started on Carafate and her discomfort resolved. At discharge, it is most likely that the patient's chest pain is due to gastroesophageal reflux disease. At this point, the patient is recommended to continue Prilosec 20 mg twice a day with Tums on a p.r.n. basis. The patient is recommended to follow up with Dr. Emma Rust, her primary care provider, on 08/09/16 with a scheduled followup appointment. The patient is also recommended to continue taking her Lovaza as previously prescribed for her hypertriglyceridemia and modify her diet to low cholesterol. TIME SPENT: Approximately 35 minutes was spent on the patient's discharge. [id number]/[facility] #: [id number] KELLIE
== END 2016-08-02 15:33 | disposition home or self-care (01) ==
LOC: ED 09:29 → MEDTELE 11:01
PROVIDERS: ADMIT Internal Medicine; ATTEND Internal Medicine
DX: R07.9 Chest pain, unspecified (principal); E78.1 Pure hyperglyceridemia; I10 Essential (primary) hypertension; J45.909 Unspecified asthma, uncomplicated; R94.31 Abnormal electrocardiogram [ECG] [EKG]; Z79.899 Other long term (current) drug therapy; Z88.6 Allergy status to analgesic agent; Z87.891 Personal history of nicotine dependence
CPT/HCPCS: 36415; 71010; 78452; 80048; 80053; 80061; 82550; 82553; 83036; 83605; 83735; 83880; 84436; 84443; 84484; 85025; 85610; 85730; 93005; 93017; 93306; 99284; A9270-GY; A9502; G0378; J1644

== ENCOUNTER 2017-06-09 10:12 | Emergency (ER) | payer BC ==
--- NOTE | 2017-06-09 11:54 | UC ---
Complaint Female HPI - HPI Summary HPI Summary: 61 yo WF c/o lower abd pain x1 day associated with f/c, temp 101, NO pmhx and fmhx only positive for divertic in brother, denies n/v/d. Denies bloody, stool, dysuria, frequency or urgency and has some "IBS-like sx" in the past with loose stools alternating with constipation - History Of Current Complaint Chief Complaint: UCAbdominalPain Stated Complaint: LOWER ABD PAIN FEVER Time Seen by Provider: 06/09/17 11:26 Hx Obtained From: Patient Onset/Duration: Sudden Onset Timing: Constant Pain Intensity: 7 Character: Sharp, Dull, Cramping - Allergies/Home Medications Allergies/Adverse Reactions: Allergies Allergy/AdvReac Type Severity Reaction Status Date / Time aspirin Allergy Anaphylatic Verified 06/09/17 10:24 Shock ibuprofen Allergy Anaphylatic Verified 06/09/17 10:24 Shock Home Medications: Home Medications Albuterol HFA INHALER* [Ventolin HFA Inhaler*] 1 puff INH Q4HR PRN 06/09/17 [ History Confirmed 06/09/17] Mometasone NASAL (NF) [Nasonex (NF)] 1 spray NASAL DAILY 06/09/17 [History Confirmed 06/09/17] PMH/Surg Hx/FS Hx/Imm Hx - Additional Past Medical History Additional PMH: constipation Previously Healthy: Yes - Surgical History Surgical History: Yes Surgery Procedure, Year, and Place: Appendectomy; Minicus repair Right Knee. - Family History Known Family History: Positive: Cardiac Disease, Other - BROTHER- Diverticulitis - Social History Alcohol Use: Daily Alcohol Amount: 2-4 glass Substance Use Type: None Smoking Status (MU): Former Smoker Type: Cigarettes Length of Time of Smoking/Using Tobacco: 20 years Have You Smoked in the Last Year: No - Immunization History Most Recent Influenza Vaccination: fall Most Recent Pneumonia Vaccination: never Review of Systems Constitutional: Negative Skin: Negative Eyes: Negative ENT: Negative Respiratory: Negative Cardiovascular: Negative Gastrointestinal: Abdominal Pain Genitourinary: Negative Motor: Negative Neurovascular: Negative Musculoskeletal: Negative Neurological: Negative Psychological: Negative Is Patient Immunocompromised?: No All Other Systems Reviewed And Are Negative: Yes Physical Exam Triage Information Reviewed: Yes Appearance: No Pain Distress Vital Signs: Initial Vital Signs Temp 36.9 C 06/09/17 10:26 Pulse 88 06/09/17 10:26 Resp 18 06/09/17 10:26 BP 143/88 06/09/17 10:26 Pulse Ox 98 06/09/17 10:26 Eye Exam: Normal ENT Exam: Normal Dental Exam: Normal Neck exam: Normal Neck: Positive: 1 Respiratory Exam: Normal Cardiovascular Exam: Normal Abdomen Description: Positive: Soft, Distended, Other: - mild-moderate lower abd tenderness, normal BS. Negative: CVA Tenderness (R), Guarding Musculoskeletal Exam: Normal Neurological Exam: Normal Psychological Exam: Normal Skin Exam: Normal Complaint Female Dx - Course Course Of Treatment: US of renal,bladder Pelvis neg for hydro, masses or stones, . Abd XR reveals still large amount of stool, with large amount of associated gas. Urinary and pelvic etiology not likely explanation for LLQ pain, appears to be fecal stasis and associated failure of bowel gas evacuation. Still I asked pt to f/u with GI for possible colo in nomee it is atypical case of diverticulitis and persistent LLQ pain. PO colace, and stimulant laxatives advised - Differential Dx/Diagnosis Differential Diagnosis/HQI/PQRI: Endometriosis, Ovarian Cyst, Renal Colic, Ureteral Stone, Urinary Tract Infection Provider Diagnoses: LLQ pain. Obstipation. Fecal stasis Discharge - Discharge Plan Condition: Stable Disposition: HOME Patient Education Materials: Obstipation (ED), Acute Abdominal Pain (ED), Gas and Bloating (ED) Referrals: Emma Nayak MD [Primary Care Provider] - Additional Instructions: Follow up with GI in 1 week if sx persist
[2017-06-09 13:03] VITALS: BP 155/89
--- NOTE | 2017-06-09 13:05 | RAD ---
Indication: 1.5 days pelvic and suprapubic pain. Fever. Comparison: No relevant prior exams available on the [facility] PACS for comparison. Technique: Transabdominal pelvic ultrasound. Report: Unremarkable 7.3 x 2.9 x 3.5 cm anteverted uterus with 7.3 mm endometrium within normal limits in absence of postmenopausal bleeding. Negative for free pelvic fluid. Unremarkable 2.8 x 1.4 x 1.8 cm RIGHT ovary with documented vascular flow and 2.1 x 1.1 x 1.8 cm LEFT ovary with documented vascular flow. No extra ovarian adnexal region lesions evident. The urinary bladder is moderately distended and remarkable for grossly anechoic fluid contents. No bladder wall thickening evident. IMPRESSION: Negative pelvic ultrasound.
--- NOTE | 2017-06-09 13:11 | RAD ---
HISTORY: Pelvic and suprapubic pain COMPARISONS: None TECHNIQUE: Multiple transverse and longitudinal ultrasound images were obtained of the kidneys and bladder using grayscale and color Doppler imaging. FINDINGS: RIGHT KIDNEY: The right kidney is normal in shape, size, contour, and echogenicity. There is no hydronephrosis or nephrolithiasis. The right kidney measures 11.5 x 4.1 x 5.6 cm. LEFT KIDNEY: A dromedary hump is noted on the left. The left kidney is otherwise normal in shape, size, contour, and echogenicity. There is no hydronephrosis or nephrolithiasis. The left kidney measures 11.2 x 6.1 x 6.4 cm. BLADDER: The bladder is smooth in contour. Bilateral ureteral jets are identified. The prevoid bladder volume is 209 milliliters.. The postvoid bladder volume is 20 milliliters. AORTA AND IVC: No images are submitted of the vasculature. RETROPERITONEUM: Unremarkable. OTHER: None. IMPRESSION: 1. NO HYDRONEPHROSIS OR NEPHROLITHIASIS. 2. 20 ML POSTVOID RESIDUAL.
--- NOTE | 2017-06-09 13:14 | RAD ---
HISTORY: Lower abdominal pain COMPARISONS: None VIEWS: Frontal supine and upright views of the abdomen. FINDINGS: BOWEL: There is a nonspecific bowel gas pattern, with nondilated small bowel gas noted. There is a moderate amount of stool within the colon. CALCULI: Vascular calcification is noted in the midabdomen. BONES AND SOFT TISSUES: Mild degenerative changes are noted. OTHER FINDINGS: The lung bases are clear. There is no subphrenic gas. IMPRESSION: NONSPECIFIC BOWEL GAS PATTERN.
== END 2017-06-09 14:30 | disposition home or self-care (01) ==
LOC: UCEAST 10:12
DX: R10.32 Left lower quadrant pain (principal); K56.41 Fecal impaction; R50.9 Fever, unspecified; Z88.6 Allergy status to analgesic agent; Z87.891 Personal history of nicotine dependence
CPT/HCPCS: 74019; 76770; 76856; 81003; 99212; G0463

== ENCOUNTER 2019-02-12 09:34 | Emergency (ER) | payer BC ==
[2019-02-12 10:01] VITALS: BP 152/84
--- NOTE | 2019-02-12 10:06 | UC ---
Lower Extremity/Ankle HPI - HPI Summary HPI Summary: Patient is a 63-year-old female presenting with left fourth and fifth toe pain and forefoot pain since last night when she hit her toes on the kitchen chair. Patient notes bruising, swelling, and difficulty ambulating due to pain. She states she knows the toe is broken because she has broken toes in the past. 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 Denies decreased sensation. Denies tingling. Notes inability to move the 4th toe. - History of Current Complaint Chief Complaint: UCLowerExtremity Stated Complaint: TOE INJURY Hx Obtained From: Patient Onset/Duration: Sudden Onset Severity Currently: Severe Pain Intensity: 7 Pain Scale Used: 0-10 Numeric - Allergies/Home Medications Allergies/Adverse Reactions: Allergies Allergy/AdvReac Type Severity Reaction Status Date / Time aspirin Allergy Anaphylatic Verified 02/12/19 10:01 Shock ibuprofen Allergy Anaphylatic Verified 02/12/19 10:01 Shock Home Medications: Home Medications Levalbuterol HFA INHALER* [Xopenex Hfa Inhaler*] 2 puff INH QID PRN 02/12/19 [ History Confirmed 02/12/19] Loratadine 10 mg PO DAILY 02/12/19 [History Confirmed 02/12/19] PMH/Surg Hx/FS Hx/Imm Hx Previously Healthy: Yes - Surgical History Surgical History: Yes Surgery Procedure, Year, and Place: Appendectomy; Minicus repair Right Knee. - Family History Known Family History: Positive: Cardiac Disease, Other - BROTHER- Diverticulitis - Social History Alcohol Use: Daily Alcohol Amount: 2-4 glasses Substance Use Type: None Smoking Status (MU): Former Smoker Type: Cigarettes Length of Time of Smoking/Using Tobacco: 28 years Have You Smoked in the Last Year: No - Immunization History Most Recent Influenza Vaccination: fall Most Recent Pneumonia Vaccination: never Review of Systems All Other Systems Reviewed And Are Negative: Yes Constitutional: Positive: Negative. Negative: Fever Skin: Positive: Bruising Respiratory: Positive: Negative Cardiovascular: Positive: Negative Gastrointestinal: Positive: Negative. Negative: Vomiting, Nausea Musculoskeletal: Positive: Arthralgia, Decreased ROM, Edema Neurological: Negative: Weakness, Paresthesia, Numbness Physical Exam Triage Information Reviewed: Yes Appearance: Well-Appearing, No Pain Distress, Well-Nourished Vital Signs: Initial Vital Signs Temp 98.3 F 02/12/19 09:58 Pulse 70 02/12/19 09:58 Resp 15 02/12/19 09:58 BP 152/84 02/12/19 09:58 Pulse Ox 100 02/12/19 09:58 Vital Signs Reviewed: Yes Eyes: Positive: Conjunctiva Clear ENT: Positive: Hearing grossly normal Neck: Positive: Supple Respiratory: Positive: No respiratory distress Cardiovascular: Positive: Pulses Normal - ankle and pedal pulses strong bilaterally, Brisk Capillary Refill Musculoskeletal: Positive: ROM Limited @ - flexion of 4th and 5th toes, Edema @ - left 4th toe and lateral forefoot Neurological: Positive: Alert Psychological: Positive: Age Appropriate Behavior Skin: Positive: Other - scchymosis noted of left 4th toe Diagnostics - Radiology left foot Radiology Interpretation Completed By: Radiologist Summary of Radiographic Findings: IMPRESSION: NONDISPLACED FRACTURE OF THE FIFTH PROXIMAL PHALANX. Lower Extremity Course/Dx - Course Course Of Treatment: Discussed fractured phalanx with patient. She received sim taping and postop shoe here. Instructed her to follow up with orthopedics. Patient voiced understanding and agreed to the plan. - Differential Dx/Diagnosis Provider Diagnosis: Closed fracture of fifth toe of left foot Discharge ED - Sign-Out/Discharge Documenting (check all that apply): Patient Departure All imaging exams completed and their final reports reviewed: Yes - Discharge Plan Condition: Stable Disposition: HOME Patient Education Materials: Toe Fracture (ED) Referrals: Aman Estevez MD [Medical Doctor] - As Soon As Possible Emma Nayak MD [Primary Care Provider] - If Needed Additional Instructions: As discussed, your xrays showed a fracture of the fifth toe. Use sim taping and the post op shoe to help relieve pain and stabilize the toe until you are able to follow up with orthopedics. You may take over the counter pain medication as directed for pain relief. Follow up with orthopedics as listed below as soon as possible. Go to the emergency room if you the foot becomes numb and cold or you experience severe pain. - Billing Disposition and Condition Condition: STABLE Disposition: Home
== END 2019-02-12 11:05 | disposition home or self-care (01) ==
LOC: UCEAST 09:34
DX: S92.502A Displaced unspecified fracture of left lesser toe(s), initial encounter for closed fracture (principal); Z88.8 Allergy status to other drugs, medicaments and biological substances; Z87.891 Personal history of nicotine dependence; W22.03XA Walked into furniture, initial encounter; Y92.89 Other specified places as the place of occurrence of the external cause
CPT/HCPCS: 99212; G0463